=== PATIENT | female | born 1975 | race Caucasian/White ===

== ENCOUNTER → 2017-10-30 | Outpatient (CLI) | payer BC ==
[~2017-10-30] MED LIST: CETI10TA24 PO; GINGER PO; MULT-230 PO; TURMERIC PO; VITAMIN C PO
== END ==
LOC: STAR 14:01
PROVIDERS: ATTEND Orthopaedic Surgery
DX: Z02.9 Encounter for administrative examinations, unspecified (principal)

== ENCOUNTER 2017-11-03 08:49 | Day surgery (SDC) | payer BC ==
[~2017-11-03] VITALS: Ht 162.6 cm; Wt 74.0 kg
[~2017-11-03 08:49] MED LIST changes: +EPINEPHRINE 1 MG/ML, 1ML ONE; +LIDOCAINE 1%, 50ML ONE; +ROPIvacaine/PF 0.5%, 30 ML ONE
[2017-11-03] MEDS ORDERED: LACTATED RINGERS 1,000 ML IV SCH (09:11)
[2017-11-03 09:23] VITALS: BP 119/83
[2017-11-03] MEDS ORDERED: ACETAMINOPHEN 500 MG TABLET PO ONE (09:30)
[2017-11-03] MEDS ORDERED: ONDANSETRON ODT 8 MG PO ONE (09:30)
[2017-11-03] MEDS ORDERED: OxyconTIN ER 10 MG TAB.ER PO ONE (09:30)
[2017-11-03] MEDS ORDERED: SCOPOLAMINE PATCH, 1.5MG PATCH.TD72 TD ONE (09:30)
[2017-11-03] MEDS ORDERED: GABAPENTIN 300 MG CAPSULE PO ONE (09:30)
[2017-11-03] MEDS ORDERED: DEXAMETHASONE 4 MG/ML, 1ML ONE ×2 (10:03→10:44)
[2017-11-03] MEDS ORDERED: FENTANYL PF 100 MCG/2ML ONE ×2 (10:03→12:11)
[2017-11-03] MEDS ORDERED: ONDANSETRON 2MG/ML, 2ML ONE (10:03)
[2017-11-03] MEDS ORDERED: MIDAZOLAM 1 MG/ML, 2ML ONE (10:03)
[2017-11-03] MEDS ORDERED: CEFAZOLIN 1,000 MG ONE ×2 (10:03→10:44)
[2017-11-03] MEDS ORDERED: PROPOFOL 10 MG/ML, 20ML ONE ×2 (10:03→10:44)
[2017-11-03] MEDS ORDERED: LIDOCAINE-MPF 2% ,5ML ONE (10:04)
[2017-11-03] MEDS ORDERED: BUPIVACAINE/PF 0.5% ONE (10:04)
[2017-11-03] MEDS ORDERED: SUCCINYLCHOLINE 20 MG/ML, 10ML ONE (10:44)
[2017-11-03] MEDS ORDERED: KETOROLAC 30 MG/1 ML ONE ×2 (10:44→11:13)
[2017-11-03] MEDS ORDERED: MEPERIDINE/PF 50 MG/ML ONE ×2 (10:44→11:08)
[2017-11-03] MEDS ORDERED: ALBUTEROL SULFATE 2.5 MG/3 ML NPPB PRN (11:30)
[2017-11-03] MEDS ORDERED: MIDAZOLAM 1 MG/ML, 2ML IV PRN (11:30)
[2017-11-03] MEDS ORDERED: LABETALOL 5MG/ML, 20ML IV PRN (11:30)
[2017-11-03] MEDS ORDERED: OXYcodone 5 MG/5 ML ORAL.SOL UDC PO PRN (11:30)
[2017-11-03] MEDS ORDERED: PROMETHAZINE 25 MG/ML, 1ML IV PRN (11:30)
[2017-11-03] MEDS ORDERED: morphine SULFATE 10 MG/ML, 1ML IV PRN (11:30)
[2017-11-03] MEDS ORDERED: PROMETHAZINE 12.5 MG SUPP PR PRN (11:30)
[2017-11-03] MEDS ORDERED: ALBUTEROL/IPRATROPIUM 2.5MG/0.5MG, 3 ML NPPB PRN (11:30)
[2017-11-03] MEDS ORDERED: hydrALAzine 20 MG/ML, 1ML IV PRN (11:30)
[2017-11-03] MEDS ORDERED: DIAZEPAM 5 MG/ML, 2ML IVPush PRN (11:30)
[2017-11-03] MEDS ORDERED: MEPERIDINE/PF 25MG/0.5ML IVPush PRN (11:30)
[2017-11-03] MEDS ORDERED: ONDANSETRON 2MG/ML, 2ML IVPush PRN (11:30)
[2017-11-03] MEDS ORDERED: LORazepam 2 MG/ML, 1ML IVPush PRN (11:30)
[2017-11-03] MEDS ORDERED: OXYcodone 5 MG/5 ML ORAL.SOL UDC ONE (12:11)
[2017-11-03] MEDS: FENTANYL PF 100 MCG/2ML IV PRN ×2 (12:15→12:33)
== END 2017-11-03 14:20 ==
LOC: OUT 08:49
PROVIDERS: ATTEND Orthopaedic Surgery
DX: S83.281A Other tear of lateral meniscus, current injury, right knee, initial encounter (principal); S83.511A Sprain of anterior cruciate ligament of right knee, initial encounter; M65.861 Other synovitis and tenosynovitis, right lower leg; X58.XXXA Exposure to other specified factors, initial encounter; Y93.89 Activity, other specified; Y92.89 Other specified places as the place of occurrence of the external cause; Y99.8 Other external cause status; Z88.0 Allergy status to penicillin
CPT/HCPCS: 29881; 29888; 73560; 76000; 81025; C1713; C1762; J0171; J0330; J0690; J1100; J1885; J2175; J2250; J2704; J2795; J3010; J3360; J3490; J7120; Q0162; J2405